=== PATIENT | female | born 1935 | race Caucasian/White ===

== ENCOUNTER → 2017-05-25 | Outpatient (CLI) | payer OTHER ==
--- NOTE | 2017-05-26 10:03 | MRI ---
STUDY: MRI OF THE LUMBAR SPINE HISTORY: Disc disorder with radiculopathy. Chronic low back pain. Comparison: None. Technique: Multiplanar multi-sequence MRI of the lumbar spine was performed. Sagittal T1, sagittal T 2, and STIR images, axial T1, and axial T2 images were obtained. Findings: Sagittal images: Vertebral body heights and alignment are within normal limits. Marrow signal is age-appropriate. Ther e is multilevel degenerative disc disease and degenerative endplate change. Schmorl's nodes are ident ified at T12-L3. No significant marrow edema is identified. 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 The conus medullaris is normal in appearance terminating at the level of L1. Axial images: T12 -- L1: Normal. L1 -- L2: There is bilateral facet arthropathy and ligamentum flavum infolding. The central canal and neural foramina are adequate. L2 -- L3: There is broad-based disc bulge, bilateral facet arthropathy and ligamentum flavum infoldin g. The combination of these findings results in mild central canal stenosis. There is mild right and moderate left neural foraminal stenosis at this level. L3 -- L4: There is a broad-based disc bulge, bilateral facet arthropathy and ligamentum flavum infold ing. The combination of these findings results in moderate spinal stenosis. The neural foramina are a dequate. L4 -- L5: There is shallow disc bulge, bilateral facet arthropathy and ligamentum flavum infolding. T he central canal and neural foramina are adequate. L5 -- S1: There is minimal disc bulge and bilateral facet arthropathy. The central canal neural uzma shaun are adequate. IMPRESSION: 1. Multilevel lumbar spondylosis as described, most severe at L3/4. 2. Moderate spinal stenosis at L3/4. 3. Mild spinal stenosis at L2/3. 4. Multilevel neural foraminal stenosis. Please see above for detail. Reported By:
== END | disposition home or self-care (01) | DRG 552 ==
LOC: RAD 14:49
PROVIDERS: ATTEND Internal Medicine
DX: M51.17 Intervertebral disc disorders with radiculopathy, lumbosacral region (principal); M47.896 Other spondylosis, lumbar region; M48.061 Spinal stenosis, lumbar region without neurogenic claudication
CPT/HCPCS: 72148

== ENCOUNTER → 2017-06-26 | Outpatient (CLI) | payer OTHER ==
--- NOTE | 2017-06-27 09:22 | MG ---
HISTORY: Left breast carcinoma Bilateral digital diagnostic mammography with CAD. Comparison: January 29, 2015 and May 10, 2016 FINDINGS: Bilateral CC and MLO projections of the right and left breast were obtained. Heterogeneously dense f ibroglandular tissue is seen to be present without significant interval change. No new or developing suspicious architectural distortion, mass or clustered microcalcifications can be observed to sugges t malignancy. No pathological lymphadenopathy can be identified. Benign-appearing calcifications are noted within the right and left breast. There are stable postsurgical changes on the left. IMPRESSION: NO RADIOGRAPHIC EVIDENCE OF MALIGNANCY. ACR CATEGORY 2 - benign findings. FOLLOW-UP EXAM 1 YEAR. Diagnostic CAD was utilized and reviewed. * 0 (ZERO) - ASSESSMENT INCOMPLETE; ADDITIONAL IMAGING IS NEEDED. * 1/1 (ONE) - NEGATIVE. * 2/II (TWO) - BENIGN FINDINGS. * 3/III (THREE) - PROBABLY BENIGN FINDING; SHORT INTERVAL FOLLOW-UP SUGGESTED. * 4/IV (FOUR) - SUSPICIOUS ABNORMALITY; BIOPSY SHOULD BE CONSIDERED. * 5/V - HIGHLY SUSPICIOUS OF MALIGNANCY; BIOPSY SHOULD BE PERFORMED. A NEGATIVE X-RAY REPORT SHOULD NOT DELAY BIOPSY IF A DOMINANT OR CLINICALLY SUSPICIOUS MASS IS PRESENT; 4 TO 8 PERCENT OF CANCERS ARE NOT IDENTIFIED BY X-RAY. A NEGA TIVE REPORT MAY REINFORCE THE CLINICAL IMPRESSION. ADENOSIS AND DENSE BREASTS MAY OBSCURE AN UNDERLY ING NEOPLASM. Reported By:
== END ==
LOC: RAD 11:00
PROVIDERS: ATTEND Nurse Practitioner Family
DX: Z85.3 Personal history of malignant neoplasm of breast (principal)
CPT/HCPCS: 77066

== ENCOUNTER 2024-06-19 21:59 | Observation (INO) ==
[2024-06-19 22:44] LABS: BASOPHILS % (AUTO) 0.8 % (0.2-1.0); EOSINOPHILS # (AUTO) 0.1 x10^3/uL (0.0-0.2); EOSINOPHILS % (AUTO) 2.6 % (0.9-2.9); HEMATOCRIT 38.1 % (36.0-47.0); LYMPHOCYTES # (AUTO) 2.1 X10^3/uL (1.3-2.9); LYMPHOCYTES % (AUTO) 38.3 % (21.0-51.0); MEAN CORPUSCULAR HEMOGLOBIN 31.6 pg (27.0-34.0); MEAN CORPUSCULAR HGB CONC 34.1 g/dL (33.0-35.0); MEAN CORPUSCULAR VOLUME 92.7 fL (80.0-100.0); MONOCYTES # (AUTO) 0.5 x10^3/uL (0.3-0.8); MONOCYTES % (AUTO) 9.6 % (0.0-13.0); NEUTROPHILS # (AUTO) 2.7 x10^3/uL (2.2-4.8); NEUTROPHILS % (AUTO) 48.7 % (42.0-75.0); PLATELET COUNT 124 X10^3/uL (150.0-450.0); RED BLOOD COUNT 4.11 X10^6/uL (3.5-5.4); RED CELL DISTRIBUTION WIDTH 13.4 % (11.6-16.5); WHITE BLOOD COUNT 5.5 X10^3/uL (3.6-10.0)
--- NOTE | 2024-06-19 23:03 | CT ---
EXAM: CT HEAD WITHOUT CONTRAST HISTORY: complaints of a fall prior to arrival. Daughter states after pt ate supper pt fell. Denies LOC. Pt st ates she hit her head on the floor. Knot located to pts forehead. Pt denies pain at this time. pt A COMPARISON: None. TECHNIQUE: Axial CT images were obtained through the brain without contrast. All CT scans at this facility use dose modulation, iterative reconstruction, and/or weight based dosi ng when appropriate to reduce radiation dose to as low as reasonably achievable. FINDINGS: BRAIN: There is moderate diffuse atrophy with proportionate enlargement of the cerebral sulci and pino tricular system. Decreased attenuation in the periventricular white matter is compatible with but n ot specific for chronic small vessel ischemic changes. No evidence of acute infarct intra or extraa xial hemorrhage mass effect or hydrocephalus. CALVARIUM: Normal ADDITIONAL FINDINGS: The visualized paranasal sinuses and mastoid air cells are clear. Orbits are andres ssly unremarkable. IMPRESSION: No evidence of acute intracranial process. THIS IS AN ELECTRONICALLY VERIFIED FINAL REPORT 06/19/2024 10:59 PM - Electronically signed by Lore Moreira MD
[2024-06-19 23:08] LABS: BLOOD UREA NITROGEN 18 mg/dL (7-18); CALCIUM 8.7 mg/dL (8.5-10.1); CARBON DIOXIDE 33.8 mmol/L (21-32); CHLORIDE 103 mmol/L (98-107); COR NA(FOR HYPERGLY) 144 mmol/L (136-145); CREATININE 0.99 mg/dL (0.55-1.02); GLUCOSE 190 mg/dL (65-99); POTASSIUM 3.5 mmol/L (3.5-5.1); SODIUM 142 mmol/L (136-145); eGFR NON BLACK RACES 57 (>60)
[2024-06-19 23:17] LABS: BILIRUBIN,URINE NEGATIVE (NEGATIVE); BLOOD/HEMOGLOBIN,URINE NEGATIVE (NEGATIVE); GLUCOSE, URINE NEGATIVE (NEGATIVE); KETONES,URINE NEGATIVE (NEGATIVE); LEUKOCYTE ESTERASE ,URINE NEGATIVE (NEGATIVE); NITRITES,URINE NEGATIVE (NEGATIVE); PH,URINE 6.5 (5.0 - 8.0); PROTEIN,URINE NEGATIVE (NEGATIVE); UROBILINOGEN,URINE NORMAL (NORMAL)
[2024-06-19 23:19] LABS: APPEARANCE,URINE CLEAR (CLEAR); COLOR,URINE YELLOW (YELLOW)
[2024-06-20 00:19] LABS: INR 1.05 (0.8-1.3)
--- NOTE | 2024-06-20 00:19 | EKG ---
Test Reason : TIA Blood Pressure : */* mmHG Vent. Rate : 67 BPM Atrial Rate : 67 BPM P-R Int : 256 ms QRS Dur : 80 ms QT Int : 420 ms P-R-T Axes : 69 -14 10 degrees QTc Int : 443 ms Sinus rhythm with 1st degree AV block with occasional premature ventricular complexes Possible Anterolateral infarct (cited on or before 21-NOV-2022) Abnormal ECG When compared with ECG of 21-NOV-2022 11:25, premature ventricular complexes are now present Nonspecific T wave abnormality now evident in Inferior leads Confirmed by Torrey Lo MD ([id number]) on 06/20/2024 6:55:26 AM Referred By: Confirmed By: Torrey Lo MD
[2024-06-20 00:32] LABS: MAGNESIUM 1.8 mg/dL (2.0-2.9)
--- NOTE | 2024-06-20 01:00 | DR.EXTPAIN ---
HPI Time seen Time Seen by Provider: 06/19/24 22:25 PCP Primary Care Physician: Complaint/Symptoms Chief Complaint Doctor Comments: 88 yo F, no pert med hx, Patient brought to ER via ems with complaint of a fall just prior to arrival. Daughter states after pt ate supper pt fell. Denies LOC. Pt states she hit her head on the floor. Knot located to pts forhead. Pt denies pain at this time. pt A&O. Pt's daughter states that prior to the fall, pt had episode of confusion, with mumbled speech, holding a plate to her head, attempting to talk into it like it was a phone. Pt then fell to the floor. Pt had returned to baseline mentally by arrival to ER. Chief Complaint:: Fall, slurred speech, hit head, L knee pain COVID-19 Coronavirus risk:travel/contact w/high risk person: No Has patient experienced Coronavirus symptoms: No Source History Provided: Patient Mode of arrival Mode of Arrival: EMS Timing Onset of Chief Complaint: 06/19/24 PMH PMH Past Medical History: Yes Past Medical History: Anxiety, Depression, Dyslipidemia and Hypothyroidism Past Medical History Comment: Breast cancer Past Surgical History: Yes Surgical History: Mastectomy Family History History of Family Medical Conditions: No Social History Does patient currently use any type of tobacco product: No Have you used tobacco products in the last 12 months: No Type of Tobacco Use: None Does any household member use tobacco: No Alcohol Use: None Do you use any recreational Drugs:: No Lives With: Alone Lives Where: Home Travel Risk Coronavirus risk:travel/contact w/high risk person: No Has patient experienced Coronavirus symptoms: No Infectious screening Have you traveled outside the country in the last 6 months?: No Isolation: Standard ROS Review of Systems Constitutional: negative Chills, Fever, Malaise or Fatigue Neurological: See HPI and Speech Problem (Slurred / Mumble) Musculoskeletal: Other (forehead hematoma) All Other Systems: Reviewed and Negative PE Vital Signs Vitals: Vital Signs Temperature 98.2 F Pulse Rate 66 Pulse Rate 68 Pulse Rate 69 Pulse Rate 73 Pulse Rate 73 Pulse Rate 79 Respiratory Rate 19 Blood Pressure 138/63 Blood Pressure 146/68 O2 Sat by Pulse Oximetry 94 O2 Sat by Pulse Oximetry 96 O2 Sat by Pulse Oximetry 95 O2 Sat by Pulse Oximetry 97 O2 Sat by Pulse Oximetry 96 O2 Sat by Pulse Oximetry 95 General Limitations: No Limitations General Appearance: Alert and In No Apparent Distress Head Head Exam: Other (3x3 hematoma on mid forehead, skin intact) Eyes Eye exam: Normal Appearance ENT ENT Exam: Normal Exam Neck Neck Exam: Normal Inspection Chest Chest Inspection: Normal Inspection Respiratory Respiratory Exam: Normal Lung Sounds Bilat Cardiovascular Cardiovascular Exam: Regular Rate and Normal Rhythm Abdominal Exam Abdominal Exam: Normal Inspection, Normal Bowel Sounds and Soft Extremities Extremities Exam: Normal Inspection Back Back Exam: Normal Inspection Neurological Neurological Exam: Alert, Oriented X3 and CN II-XII Intact Psychiatric Psychiatric Exam: Normal Affect and Normal Mood Skin Skin Exam: Warm, Dry, Intact and Normal Color ROR Labs Reviewed Laboratory Results Reviewed?: Yes 06/19/24 22:37 06/19/24 22:37 Laboratory: WBC 5.5 X10^3/uL (3.6-10.0) 06/19/24 22:37 RBC 4.11 X10^6/uL (3.5-5.4) 06/19/24 22:37 Hgb 13.0 g/dL (12.0-16.0) 06/19/24 22:37 Hct 38.1 % (36.0-47.0) 06/19/24 22:37 MCV 92.7 fL (80.0-100.0) 06/19/24 22:37 MCH 31.6 pg (27.0-34.0) 06/19/24 22:37 MCHC 34.1 g/dL (33.0-35.0) 06/19/24 22:37 RDW 13.4 % (11.6-16.5) 06/19/24 22:37 Plt Count 124 X10^3/uL (150.0-450.0) L 06/19/24 22:37 MPV 9.0 fL (7.4-11.0) 06/19/24 22:37 Neut % (Auto) 48.7 % (42.0-75.0) 06/19/24 22:37 Lymph % (Auto) 38.3 % (21.0-51.0) 06/19/24 22:37 [place] % (Auto) 9.6 % (0.0-13.0) 06/19/24 22:37 Eos % (Auto) 2.6 % (0.9-2.9) 06/19/24 22:37 Baso % (Auto) 0.8 % (0.2-1.0) 06/19/24 22:37 Neut # (Auto) 2.7 x10^3/uL (2.2-4.8) 06/19/24 22:37 Lymph # (Auto) 2.1 X10^3/uL (1.3-2.9) 06/19/24 22:37 [place] # (Auto) 0.5 x10^3/uL (0.3-0.8) 06/19/24 22:37 Eos # (Auto) 0.1 x10^3/uL (0.0-0.2) 06/19/24 22:37 Baso # (Auto) 0.0 X10^3/uL (0.0-0.1) 06/19/24 22:37 Absolute Nucleated RBC 0.0 /100WBC 06/19/24 22:37 PT 13.5 SECONDS (11.8-14.3) 06/20/24 00:00 INR Target Range - 06/20/24 00:00 INR 1.05 (0.8-1.3) 06/20/24 00:00 APTT 28.0 SECONDS (22.9-36.5) 06/20/24 00:00 PTT Comment - 06/20/24 00:00 Sodium 142 mmol/L (136-145) 06/19/24 22:37 Corrected Sodium 144 mmol/L (136-145) 06/19/24 22:37 Potassium 3.5 mmol/L (3.5-5.1) 06/19/24 22:37 Chloride 103 mmol/L (98-107) 06/19/24 22:37 Carbon Dioxide 33.8 mmol/L (21-32) H 06/19/24 22:37 BUN 18 mg/dL (7-18) 06/19/24 22:37 Creatinine 0.99 mg/dL (0.55-1.02) 06/19/24 22:37 Est GFR (MDRD) Af Amer > 60 (>60) 06/19/24 22:37 Est GFR (MDRD) Non-Af 57 (>60) L 06/19/24 22:37 Glucose 190 mg/dL (65-99) H 06/19/24 22:37 Calcium 8.7 mg/dL (8.5-10.1) 06/19/24 22:37 Magnesium 1.8 mg/dL (2.0-2.9) L 06/20/24 00:00 Creatine Kinase 61 Units/L (26-192) 06/20/24 00:00 Troponin I High Sens 8.6 ng/L (4.0-60.0) 06/20/24 00:00 B-Natriuretic Peptide 28.7 pg/mL (0-79) 06/20/24 00:00 Specimen Type Clean catch urine 06/19/24 23:11 Urine Color Yellow (YELLOW) 06/19/24 23:11 Urine Appearance Clear (CLEAR) 06/19/24 23:11 Urine pH 6.5 (5.0 - 8.0) 06/19/24 23:11 Ur Specific [place] 1.020 (1.000-1.030) 06/19/24 23:11 Urine Protein Negative (NEGATIVE) 06/19/24 23:11 Urine Glucose (UA) Negative (NEGATIVE) 06/19/24 23:11 Urine Ketones Negative (NEGATIVE) 06/19/24 23:11 Urine Blood Negative (NEGATIVE) 06/19/24 23:11 Urine Nitrite Negative (NEGATIVE) 06/19/24 23:11 Urine Bilirubin Negative (NEGATIVE) 06/19/24 23:11 Urine Urobilinogen Normal (NORMAL) 06/19/24 23:11 Ur Leukocyte Esterase Negative (NEGATIVE) 06/19/24 23:11 Opioid Opioid Risk Tool Age (Alexis box if 16-45): No History of Preadolescent Sexual Abuse: No Total: 0 Total Score Risk Category: Low Risk Copyright: Alcon TAN predicting aberrant behaviors Discharge Plan Diagnosis Discharge Problem: TIA (transient ischemic attack), Fall Discharge Plan Patient Disposition: 09 ADMITTED INPATIENT Condition: Stable Prescriptions: No Action paroxetine HCl 10 mg tablet 10 mg PO HS cetirizine 10 mg tablet 10 mg PO HS levothyroxine 50 mcg tablet 50 mcg PO DAILY zolpidem 5 mg tablet 5 mg PO HS celecoxib [Celebrex] 100 mg Capsule 100 mg PO DAILY rosuvastatin 10 mg tablet 10 mg PO HS Health Concerns: Post Hospitalization: new medications and changes needed to prevent readmission or further decline. Pt educated and given instructions on all concerns. Plan of Treatment: Continue with present treatment and follow up plan. Pt is to keep follow up appointment as instructed and take medications as ordered. Orders to Discharge Patient Discharge Orders: Transfer (Routine); Ordered 06/20/24 Ordered By: Octavio Melchor Follow ups/Referrals Follow ups/Referrals: NFD,None [Primary Care Provider] - 3 days Instructions Stand Alone Forms: Find Help Web Site, Post Hospital Follow Up Care ADDITIONAL NOTES Additional Notes Additional Notes: Pt admitted to Dr Hernandez at 0040
[2024-06-20] MEDS ORDERED: NS 1,000 ML IV 1,000 ML ONE (01:58)
[2024-06-20] MEDS: NS 1,000 ML IV 1,000 ML IV SCH (02:13)
[2024-06-20] MEDS: TYLENOL 325 MG TAB PO PRN (02:14)
[2024-06-20 05:11] VITALS: BMI 31.4
[2024-06-20 06:26] LABS: BASOPHILS % (AUTO) 0.9 % (0.2-1.0); EOSINOPHILS # (AUTO) 0.2 x10^3/uL (0.0-0.2); EOSINOPHILS % (AUTO) 2.9 % (0.9-2.9); HEMATOCRIT 36.9 % (36.0-47.0); HEMOGLOBIN 12.3 g/dL (12.0-16.0); LYMPHOCYTES # (AUTO) 2.2 X10^3/uL (1.3-2.9); LYMPHOCYTES % (AUTO) 42.1 % (21.0-51.0); MEAN CORPUSCULAR HEMOGLOBIN 30.9 pg (27.0-34.0); MEAN CORPUSCULAR HGB CONC 33.5 g/dL (33.0-35.0); MEAN CORPUSCULAR VOLUME 92.3 fL (80.0-100.0); MEAN PLATELET VOLUME 10.1 fL (7.4-11.0); MONOCYTES # (AUTO) 0.7 x10^3/uL (0.3-0.8); MONOCYTES % (AUTO) 12.5 % (0.0-13.0); NEUTROPHILS # (AUTO) 2.2 x10^3/uL (2.2-4.8); NEUTROPHILS % (AUTO) 41.6 % (42.0-75.0); PLATELET COUNT 136 X10^3/uL (150.0-450.0); RED CELL DISTRIBUTION WIDTH 13.7 % (11.6-16.5); WHITE BLOOD COUNT 5.3 X10^3/uL (3.6-10.0)
[2024-06-20 06:31] LABS: INR 1.13 (0.8-1.3)
[2024-06-20 06:59] LABS: ALANINE AMINOTRANSFERASE 23 Units/L (12-78); ALBUMIN 2.8 g/dL (3.4-5.0); ALKALINE PHOSPHATASE 55 Units/L (46-116); ASPARTATE AMINO TRANSFERASE 19 Units/L (15-37); BLOOD UREA NITROGEN 19 mg/dL (7-18); CALCIUM 8.3 mg/dL (8.5-10.1); CARBON DIOXIDE 30.2 mmol/L (21-32); CHLORIDE 105 mmol/L (98-107); CHOL/HDL RATIO 3.7 (0.0-5.0); CHOLESTEROL 147 mg/dL (0-200); COR CA(FOR HYPOALB) 9.3 mg/dL (8.5-10.1); CREATININE 0.76 mg/dL (0.55-1.02); GLUCOSE 90 mg/dL (65-99); HDL CHOLESTEROL 40 mg/dL (40-60); MAGNESIUM 1.9 mg/dL (2.0-2.9); POTASSIUM 3.7 mmol/L (3.5-5.1); SODIUM 141 mmol/L (136-145); TOTAL PROTEIN 6.2 g/dL (6.4-8.2); TRIGLYCERIDES 170 mg/dL (0-150); eGFR NON BLACK RACES > 60 (>60)
[2024-06-20 07:03] LABS: PLATELET MORPHOLOGY COMMENT NORMAL (NORMAL)
[2024-06-20] MEDS: SYNTHROID 50 mcg TAB PO SCH (08:57)
[2024-06-20] MEDS: PAXIL PO SCH (08:57)
--- NOTE | 2024-06-20 09:51 | EKG ---
Test Reason : TIA Blood Pressure : */* mmHG Vent. Rate : 68 BPM Atrial Rate : 68 BPM P-R Int : 264 ms QRS Dur : 78 ms QT Int : 420 ms P-R-T Axes : 73 -16 37 degrees QTc Int : 446 ms Sinus rhythm with 1st degree AV block Poor R-wave progression When compared with ECG of 20-JUN-2024 00:15, premature ventricular complexes are no longer present Nonspecific T wave abnormality has replaced inverted T waves in Anterior leads Confirmed by Torrey Lo MD ([id number]) on 06/20/2024 1:53:19 PM Referred By: Confirmed By: Torrey Lo MD
--- NOTE | 2024-06-20 11:01 | VAS ---
EXAMINATION:CAROTID USHISTORY:TIA; .COMPARISON STUDY:None.TECHNIQUE:Bowman scale imaging, pulsed wave doppler and color doppler imaging of the bilateral carotid arteries was performed.FINDINGS:PSV (cm/sec) PDV (cm/sec)RCCA 99RICA 99RECA 77ICA/CCA Ratio: 1.23Vertebral Artery: Antegrade flowLCCA 104LICA 136LECA 63ICA/CCA Ratio: 1.72Vertebral Artery: Antegrade flowIMPRESSION:Slightly elevated arterial velocity right internal carotid artery suggestive of [id number] arterial stenosis. Duplex Doppler arterial waveforms of the right internal carotid artery demonstrates spectral broadening/turbulent blood flow potentially representing an arterial stenosis. There are resistive arterial waveforms left vertebral artery. Recommend further evaluation with CTA of the neck.Measurements were made utilizing the Society of Radiologists in Ultrasound consensus criteria, extrapolating data obtained from angiography measurements made by the NASCET method as a reference standard.THIS IS AN ELECTRONICALLY VERIFIED FINAL REPORT06/20/2024 10:58 AM - Electronically signed by Ana Hilton MD
[2024-06-20 12:18] VITALS: BP 160/78; PULSE 61; RESP 16; TEMP 97.4; O2SAT 94
--- NOTE | 2024-06-20 20:26 | DR.SSS ---
SHORT STAY SUMMARY Admission Date Date of Admission: 06/19/24 Discharge Date Discharge Date: 06/20/24 Admission Diagnoses Admission Diagnoses: TIA Fall AMS Discharge Diagnoses Discharge Diagnoses: TIA AMS Fall Dehydration Generalized weakness Chief Complaint Chief Complaint: fall History of Present Illness History of Present Illness: Patient is a 88y/o female with a PMH of Anxiety, HLD, MDD presented after having a fall associated with slurred speech and confusion. ER work up showed negative Ct-brain, Ua neg, Trop neg, no pertinent lab abnormalities. She was admitted for further evaluation. Past Medical History Past Medical History: Anxiety, Depression, Dyslipidemia and Hypothyroidism Past Surgical History Surgical History: Other Allergies Allergies Allergy/AdvReac Type Severity Reaction Status Date / Time No Known Drug Allergies Allergy Verified 06/19/24 22:19 Medications Home Medications: No Known Drug Allergies Allergy (Verified 06/19/24 22:19) CONTINUE taking the following medications paroxetine HCl 30 mg tablet 30 mg PO DAILY 06/20/24 [History] temazepam 30 mg capsule 30 mg PO HS 06/20/24 [History] Family History Family Medical History: Cancer Social History Does patient currently use any type of tobacco product: No Have you used tobacco products in the last 12 months: No Type of Tobacco Use: None Does any household member use tobacco: No Alcohol Use: None Drug Use: None Review of Systems Constitutional: No Symptoms Reported Eyes: No Symptoms Reported Respiratory: No Symptoms Reported Cardiovascular: No Symptoms Reported Gastrointestinal: No Symptoms Reported Genitourinary: No Symptoms Reported Musculoskeletal: No Symptoms Reported Skin: No Symptoms Reported Neurological: Change in Speech Physical Exam Vital Signs: Last Vital Signs Temp 97.4 F L 06/20/24 12:00 Pulse 61 06/20/24 12:00 Resp 16 06/20/24 12:00 BP 160/78 06/20/24 12:00 Pulse Ox 94 L 06/20/24 12:00 O2 Del Method Room Air 06/20/24 12:00 Oriented: Normal Nose: Normal Throat: Normal Respiratory: Clear Throughout Cardiovascular: Normal Auscultation: Bowel Sounds: Normal Palpation: Normal Tenderness: Normal Skin: Normal Musculoskeletal: Normal Psychiatric: Normal Mood Description: Calm Affect: Normal Speech Pattern: Clear and Appropriate Labs Labs: Laboratory Last Values WBC 5.3 X10^3/uL (3.6-10.0) 06/20/24 05:15 RBC 4.00 X10^6/uL (3.5-5.4) 06/20/24 05:15 Hgb 12.3 g/dL (12.0-16.0) 06/20/24 05:15 Hct 36.9 % (36.0-47.0) 06/20/24 05:15 MCV 92.3 fL (80.0-100.0) 06/20/24 05:15 MCH 30.9 pg (27.0-34.0) 06/20/24 05:15 MCHC 33.5 g/dL (33.0-35.0) 06/20/24 05:15 RDW 13.7 % (11.6-16.5) 06/20/24 05:15 Plt Count 136 X10^3/uL (150.0-450.0) L 06/20/24 05:15 Plt Count Comment Decreased (ADEQUATE) A 06/20/24 05:15 MPV 10.1 fL (7.4-11.0) 06/20/24 05:15 Neut % (Auto) 41.6 % (42.0-75.0) L 06/20/24 05:15 Lymph % (Auto) 42.1 % (21.0-51.0) 06/20/24 05:15 [place] % (Auto) 12.5 % (0.0-13.0) 06/20/24 05:15 Eos % (Auto) 2.9 % (0.9-2.9) 06/20/24 05:15 Baso % (Auto) 0.9 % (0.2-1.0) 06/20/24 05:15 Neut # (Auto) 2.2 x10^3/uL (2.2-4.8) 06/20/24 05:15 Lymph # (Auto) 2.2 X10^3/uL (1.3-2.9) 06/20/24 05:15 [place] # (Auto) 0.7 x10^3/uL (0.3-0.8) 06/20/24 05:15 Eos # (Auto) 0.2 x10^3/uL (0.0-0.2) 06/20/24 05:15 Baso # (Auto) 0.0 X10^3/uL (0.0-0.1) 06/20/24 05:15 Absolute Nucleated RBC 0.2 /100WBC 06/20/24 05:15 Plt Morphology Comment Normal (NORMAL) 06/20/24 05:15 RBC Morphology Normal (NORMAL) 06/20/24 05:15 PT 14.3 SECONDS (11.8-14.3) 06/20/24 05:15 INR Target Range - 06/20/24 05:15 INR 1.13 (0.8-1.3) 06/20/24 05:15 APTT 27.0 SECONDS (22.9-36.5) 06/20/24 05:15 PTT Comment - 06/20/24 05:15 Sodium 141 mmol/L (136-145) 06/20/24 05:15 Corrected Sodium TNP 06/20/24 05:15 Potassium 3.7 mmol/L (3.5-5.1) 06/20/24 05:15 Chloride 105 mmol/L (98-107) 06/20/24 05:15 Carbon Dioxide 30.2 mmol/L (21-32) 06/20/24 05:15 BUN 19 mg/dL (7-18) H 06/20/24 05:15 Creatinine 0.76 mg/dL (0.55-1.02) 06/20/24 05:15 Est GFR (MDRD) Af Amer > 60 (>60) 06/20/24 05:15 Est GFR (MDRD) Non-Af > 60 (>60) 06/20/24 05:15 Glucose 90 mg/dL (65-99) 06/20/24 05:15 Calcium 8.3 mg/dL (8.5-10.1) L 06/20/24 05:15 Corrected Calcium 9.3 mg/dL (8.5-10.1) 06/20/24 05:15 Magnesium 1.9 mg/dL (2.0-2.9) L 06/20/24 05:15 Total Bilirubin 0.20 mg/dL (0.2-1.0) 06/20/24 05:15 AST 19 Units/L (15-37) 06/20/24 05:15 ALT 23 Units/L (12-78) 06/20/24 05:15 Alkaline Phosphatase 55 Units/L (46-116) 06/20/24 05:15 Creatine Kinase 64 Units/L (26-192) 06/20/24 01:54 Troponin I High Sens 9.9 ng/L (4.0-60.0) 06/20/24 07:27 B-Natriuretic Peptide 28.7 pg/mL (0-79) 06/20/24 00:00 Total Protein 6.2 g/dL (6.4-8.2) L 06/20/24 05:15 Albumin 2.8 g/dL (3.4-5.0) L 06/20/24 05:15 Globulin 3.4 g/dL (2.5-4.5) 06/20/24 05:15 Albumin/Globulin Ratio 0.8 Ratio (1.1-2.1) L 06/20/24 05:15 Triglycerides 170 mg/dL (0-150) H 06/20/24 05:15 Cholesterol 147 mg/dL (0-200) 06/20/24 05:15 LDL Cholesterol, Calc 73 mg/dL (0-100) 06/20/24 05:15 HDL Cholesterol 40 mg/dL (40-60) 06/20/24 05:15 Cholesterol/HDL Ratio 3.7 (0.0-5.0) 06/20/24 05:15 Specimen Type Clean catch urine 06/19/24 23:11 Urine Color Yellow (YELLOW) 06/19/24 23:11 Urine Appearance Clear (CLEAR) 06/19/24 23:11 Urine pH 6.5 (5.0 - 8.0) 06/19/24 23:11 Ur Specific [place] 1.020 (1.000-1.030) 06/19/24 23:11 Urine Protein Negative (NEGATIVE) 06/19/24 23:11 Urine Glucose (UA) Negative (NEGATIVE) 06/19/24 23:11 Urine Ketones Negative (NEGATIVE) 06/19/24 23:11 Urine Blood Negative (NEGATIVE) 06/19/24 23:11 Urine Nitrite Negative (NEGATIVE) 06/19/24 23:11 Urine Bilirubin Negative (NEGATIVE) 06/19/24 23:11 Urine Urobilinogen Normal (NORMAL) 06/19/24 23:11 Ur Leukocyte Esterase Negative (NEGATIVE) 06/19/24 23:11 Hospital Course Hospital Course: Patient was admitted for AMS, slurred speech concerning for TIA. All imaging was negative for acute changes. Carotid US did not show severe stenosis but recommended CTA neck . Echo showed grade 1 DD. As per patient, she had a minor fall at home and is at her baseline. She is alert & oriented with normal speech. She is stable to be discharged home. She will f/u with PCP. She will need outpatient CTA-neck. Discharge Medications Discharge Medications: Home Medication List paroxetine HCl 30 mg tablet 30 mg PO DAILY 06/20/24 [History] temazepam 30 mg capsule 30 mg PO HS 06/20/24 [History] Prescriptions: Discharge Disposition Discharge Disposition: Home Discharge Plan Discharge Plan Patient Disposition: HOME, SELF-CARE Condition: Stable Health Concerns: Post Hospitalization: new medications and changes needed to prevent readmission or further decline. Pt educated and given instructions on all concerns. Care Plan Goals: Problem: Activity Intolerance Goal: Increased tolerance to activity Instructions: Follow provided instructions. Follow up with primary physician as directed. Contact primary care physician or report to the closest Emergency Room if condition worsens. Plan of Treatment: Continue with present treatment and follow up plan. Pt is to keep follow up appointment as instructed and take medications as ordered. Prescriptions: Continued temazepam 30 mg capsule 30 mg PO HS paroxetine HCl 30 mg tablet 30 mg PO DAILY cetirizine 10 mg tablet 10 mg PO HS levothyroxine 50 mcg tablet 50 mcg PO DAILY rosuvastatin 10 mg tablet 10 mg PO HS Orders to Discharge Patient Discharge Orders: Discharge (Routine); Ordered 06/20/24 Ordered By: Keith Angulo Follow ups/Referrals Follow ups/Referrals: Aram Eldridge [STAFF PHYSICIAN] - 06/26/24 11:30 am Instructions Instructions: Fall Prevention in the Home, Adult, [id number], Stroke Prevention, Olet-hx-Tirt, Transient Ischemic Attack, Udcf-bz-Sezn Stand Alone Forms: Find Help Web Site, Post Hospital Follow Up Care
[2024-06-20] MEDS ORDERED: AMBIEN PO SCH (21:00)
[2024-06-20] MEDS ORDERED: CRESTOR TAB 10 MG PO SCH (21:00)
== END 2024-06-20 13:32 | disposition home or self-care (01) ==
LOC: MED/SURG 21:59 → ER 21:59 → MED/SURG 06-20 01:44
PROVIDERS: ADMIT Internal Medicine; ATTEND Internal Medicine
DX: E78.5 Hyperlipidemia, unspecified; R53.1 Weakness; G45.8 Other transient cerebral ischemic attacks and related syndromes; E03.8 Other specified hypothyroidism; S09.8XXA Other specified injuries of head, initial encounter; W18.39XA Other fall on same level, initial encounter; R26.89 Other abnormalities of gait and mobility; M25.562 Pain in left knee; R73.09 Other abnormal glucose; E83.42 Hypomagnesemia; R41.82 Altered mental status, unspecified; F41.8 Other specified anxiety disorders; R94.31 Abnormal electrocardiogram [ECG] [EKG]; E86.0 Dehydration